=== PATIENT | male | born 1935 | race Caucasian/White ===

== ENCOUNTER 2016-08-16 07:19 | Day surgery (SDC) | payer MEDICARE, BC ==
[~2016-08-16 07:19] MED LIST: Lactated Ringers 1,000 ML IV SCH
[2016-08-16] MEDS ORDERED: fentaNYL 100 MCG/2 ML SDV ONE (09:14)
[2016-08-16] MEDS ORDERED: Propofol 200 MG/20 ML SDV ONE (09:14)
--- NOTE | 2016-08-16 11:52 | OR ---
PREOPERATIVE DIAGNOSIS: Family history of colon cancer, mother. History of polyps. POSTOPERATIVE DIAGNOSIS: Tiny cecal polyps x3 removed. PROCEDURE PROPOSED: Total flexible colonoscopy. PROCEDURE DONE: Total flexible colonoscopy with polypectomy x3. INDICATION: This is an 80-year-old gentleman who comes in for colonic surveillance due to a family history of mother with colon cancer. He is presently 80 years old. His last examination was 5 years ago. TECHNIQUE: The patient was brought to the endoscopy suite, placed in left lateral decubitus position. He was sedated with propofol per [employer]. The flexible video colonoscope was then passed transanally and under visualization advanced to the cecum. In the cecal area, he was found to have 3 tiny polyps, each removed with 1 bite of the [employer] cold biopsy forceps and submitted for pathologic examination. Otherwise, the remainder of the ascending, transverse, descending, sigmoid, and rectal colon was essentially unremarkable. There was no evidence of any other polyps, colitis, or any significant diverticular disease, and the scope was then withdrawn. He tolerated the procedure well. IMPRESSION: 1. Three tiny cecal polyps removed. 2. Family history of colon cancer, mother. PLAN: He will be sent a letter with the pathology report. Based on his age, I really do not feel he needs any future exams; however, if he is still very healthy at 85 and may live another 10 years, he may want to consider a repeat exam at age 85. SCM: 08/16/2016 10:25:09 MODL: 08/16/2016 11:43:59 /[id number]
[2016-08-16 14:02] VITALS: BP 119/74
--- NOTE | 2016-08-26 09:41 | LETTER ---
08/23/2016 Tish Lucas. RE: TISH LUCAS : 1935 Dear Tish: I am pleased to report to you that the polyps removed from your colon were all benign tubular adenomas. These are considered precancer-type polyps, but they are all very small and non worrisome. I feel that you likely are done requiring colonoscopies; however, one could entertain the suggestion of considering a repeat in 5 years if you are still in excellent health and feel that you could be living for another 10 years. If you have any further questions regarding this, feel free to call. Respectfully,
== END 2016-08-16 11:30 | disposition home or self-care (01) ==
LOC: VM.SDS 07:19
PROVIDERS: ATTEND Surgery
DX: Z12.11 Encounter for screening for malignant neoplasm of colon (principal); D12.0 Benign neoplasm of cecum; Z98.890 Other specified postprocedural states; Z79.899 Other long term (current) drug therapy; E78.00 Pure hypercholesterolemia, unspecified
CPT/HCPCS: 45380; J2704; J3010; J7120; 00810; 88305

== ENCOUNTER 2018-06-17 12:55 | Emergency (ER) | payer MEDICARE, BC ==
--- NOTE | 2018-06-17 13:24 | CT ---
[id number] CT/CT Head Stroke Protocol EXAM: NONCONTRAST HEAD CT INDICATION: Strokelike symptoms, code green. COMPARISON: None. DISCUSSION: There is mild generalized atrophy. There are mild chronic small vessel ischemic changes. A 14 x 6 mm area of cortical hyperdensity (image 24 series 2) is nonspecific and brain MRI with and without contrast is suggested for further characterization. Hyperdensity can be seen in the context of hemorrhage, but the morphology is atypical and can be seen with cortical necrosis, but there is no underlying encephalomalacia or edema. No mass effect or midline shift. No acute hemorrhage or extra-axial fluid collection. No acute territorial infarct is identified. There is near complete opacification of the left maxillary sinus and several ethmoid air cells with high attenuation inspissated secretions or fungal components of the left maxillary sinus. Trace fluid in the right maxillary sinus. IMPRESSION: 1. Nonspecific 14 x 6 mm right frontal cortical hyperdensity. Brain MRI with and without contrast is suggested for further characterization. 2. Sinusitis. Moncho Red MD 06/17/18 [id number] Thank you for allowing us to participate in the care of your patient.
[2018-06-17] MEDS: Ondansetron 4 MG/2 ML SDV IVPUSH ONE (13:30)
[2018-06-17 13:46] LABS: CHLORIDE,CL 88 mmol/L (98-107)
[2018-06-17 13:49] LABS: ANION GAP 11.9 mmol/L (10-20); SODIUM,NA 124 mmol/L (136-145)
--- NOTE | 2018-06-17 14:08 | EDM.PDOC ---
ED HPI GENERAL MEDICAL PROBLEM - General Chief Complaint: Neuro Symptoms/Deficits Stated Complaint: CODE GREEN Time Seen by Provider: 06/17/18 13:20 Source of Information: Reports: Patient, RN History Limitations: Reports: No Limitations - History of Present Illness INITIAL COMMENTS - FREE TEXT/NARRATIVE: Patient brought here from the clinic after complaints of having blurry vision, left-sided weakness, and speech difficulties. Reports that these symptoms started at 1240. When he arrived here all symptoms were resolved. Patient denies headache, chest pain, shortness of breath, abdominal pain, nausea or vomiting. Additionally he denies any blood in his urine or stool. Patient denies any recent or history of CVA or KS. Medications are limited to a daily aspirin, Lasix, and multivitamins. He was able to ambulate and transfer to the CT machine for his head CT without complaints of weakness. Onset: Today, Sudden Location: Reports: Upper Extremity, Left, Lower Extremity, Left - Related Data Allergies Allergy/AdvReac Type Severity Reaction Status Date / Time No Known Allergies Allergy Verified 06/17/18 13:26 Home Meds: Home Meds Aspirin [Halfprin] 81 mg PO BRK 08/08/16 [History] Fish Oil/DHA/EPA [Fish Oil 1,200 MG] 1,200 mg PO DAILY 08/08/16 [History] Ubidecarenone [Coenzyme Q-10] 30 mg PO DAILY 08/08/16 [History] Furosemide [Lasix] 20 mg PO DAILY 06/17/18 [History] Past Medical History HEENT History: Reports: Hard of Hearing, Impaired Vision Other HEENT History: VERTIGO Cardiovascular History: Reports: High Cholesterol Other Cardiovascular History: SINUS ARRHYTHMIA Other Respiratory History: CHRONIC COUGH Gastrointestinal History: Reports: Colon Polyp Other Gastrointestinal History: INGUINAL HERNIA Genitourinary History: Reports: Prostate Disorder, Urinary Incontinence Musculoskeletal History: Other Musculoskeletal History: DEGENERATIVE JOINT DISEASE Neurological History: Reports: Headaches, Chronic, Head Trauma 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 Other Hematologic History: ABNORMAL COAGULATION PROFILE Oncologic (Cancer) History: Reports: Prostate Other Oncologic History: SKIN CANCER Other Dermatologic History: HERPES ZOSTER - Past Surgical History Head Surgeries/Procedures: Reports: None Musculoskeletal Surgical History: Reports: None ED ROS GENERAL - Review of Systems Review Of Systems: See Below Constitutional: Reports: No Symptoms HEENT: Reports: Vision Change Respiratory: Reports: No Symptoms Cardiovascular: Reports: No Symptoms Endocrine: Reports: No Symptoms GI/Abdominal: Reports: No Symptoms : Reports: No Symptoms Musculoskeletal: Reports: No Symptoms Skin: Reports: No Symptoms Neurological: Reports: Numbness, Tingling, Weakness, Change in Speech (left sided) Psychiatric: Reports: No Symptoms Hematologic/Lymphatic: Reports: No Symptoms Immunologic: Reports: No Symptoms ED EXAM, NEURO - Physical Exam Exam: See Below Exam Limited By: No Limitations General Appearance: Alert, WD/WN, No Apparent Distress Eye Exam: Bilateral Eye: EOMI, Normal Inspection, PERRL Ears: Normal TMs Nose: Normal Inspection, Normal Mucosa, No Blood Throat/Mouth: Normal Inspection, Normal Lips, Normal Teeth, Normal Gums, Normal Oropharynx, Normal Voice, No Airway Compromise Head Exam: Atraumatic, Normocephalic Neck: Normal Inspection, Supple, Non-Tender, Full Range of Motion Respiratory/Chest: No Respiratory Distress, Lungs Clear, Normal Breath Sounds, No Accessory Muscle Use, Chest Non-Tender Cardiovascular: Normal Peripheral Pulses, Regular Rate, Rhythm, No Edema, No Gallop, No JVD, No Murmur, No Rub GI/Abdominal: Normal Bowel Sounds, Soft, Non-Tender, No Organomegaly, No Distention, No Abnormal Bruit, No Mass Neurological: Alert, Normal Mood/Affect, Normal Dorsiflexion, CN II-XII Intact, Normal Plantar Flexion, Normal Gait, Normal Reflexes, No Motor/Sensory Deficits , Oriented x 3 DTR: 2+: Patella (R), Patella (L) Back Exam: Normal Inspection, Full Range of Motion, NT Extremities: Normal Inspection, Normal Range of Motion, Non-Tender, No Pedal Edema, Normal Capillary Refill Psychiatric: Normal Affect, Normal Mood Skin Exam: Warm, Dry, Intact, Normal Color, No Rash Course - Orders/Labs/Meds Orders: Active Orders 24 hr Category Date Time Status EKG 12 Lead [EKG Documentation Completion] [RC] STAT Care 06/17/18 13:21 Ordered Labs: Laboratory Tests 06/17/18 06/17/18 06/17/18 Range/Units 13:05 13:08 13:08 WBC (4.0-10.0) x10^3/uL RBC (4.5-6.0) x10^6/uL Hgb (14.0-18.0) g/dL Hct (40.0-52.0) % MCV (78.0-93.0) fL MCH (26.0-32.0) pg MCHC (32.0-36.0) g/dL RDW Coeff of Kacy (10.0-15.0) % Plt Count (130-400) x10^3/uL Neut % (Auto) (50.0-80.0) % Lymph % (Auto) (25.0-50.0) % Terry % (Auto) (2.0-11.0) % Eos % (Auto) (0.0-4.0) % Baso % (Auto) (0.2-1.2) % PT 13.3 H (9.6-11.4) SEC INR 1.3 L (2.0-3.5) APTT 31.6 (21.3-33.5) SEC Sodium 124 L* (136-145) mmol/L Potassium 3.9 (3.5-5.1) mmol/L Chloride 88 L (98-107) mmol/L Carbon Dioxide 28 (21-32) mmol/L Anion Gap 11.9 (10-20) mmol/L BUN 11 (7-18) mg/dL Creatinine 1.0 (0.70-1.30) mg/dL Est Cr Clr Drug Dosing TNP Estimated GFR (MDRD) > 60 Glucose 89 (74-106) mg/dL POC Glucose 91 (74-106) mg/dL Calcium 9.4 (8.5-10.1) mg/dL POC Troponin I (0.00-0.08) ng/mL NT-Pro-B Natriuret Pep (<=450) pg/mL TSH, Ultra Sensitive (0.358-3.74) uIU/mL 06/17/18 06/17/18 06/17/18 Range/Units 13:08 13:08 13:13 WBC 6.2 (4.0-10.0) x10^3/uL RBC 4.44 L (4.5-6.0) x10^6/uL Hgb 12.8 L (14.0-18.0) g/dL Hct 36.0 L (40.0-52.0) % MCV 81.1 (78.0-93.0) fL MCH 28.8 (26.0-32.0) pg MCHC 35.6 (32.0-36.0) g/dL RDW Coeff of Kacy 14.7 (10.0-15.0) % Plt Count 187 (130-400) x10^3/uL Neut % (Auto) 51.2 (50.0-80.0) % Lymph % (Auto) 27.9 (25.0-50.0) % Terry % (Auto) 15.7 H (2.0-11.0) % Eos % (Auto) 4.7 H (0.0-4.0) % Baso % (Auto) 0.5 (0.2-1.2) % PT (9.6-11.4) SEC INR (2.0-3.5) APTT (21.3-33.5) SEC Sodium (136-145) mmol/L Potassium (3.5-5.1) mmol/L Chloride (98-107) mmol/L Carbon Dioxide (21-32) mmol/L Anion Gap (10-20) mmol/L BUN (7-18) mg/dL Creatinine (0.70-1.30) mg/dL Est Cr Clr Drug Dosing Estimated GFR (MDRD) Glucose (74-106) mg/dL POC Glucose (74-106) mg/dL Calcium (8.5-10.1) mg/dL POC Troponin I 0.00 (0.00-0.08) ng/mL NT-Pro-B Natriuret Pep 114 (<=450) pg/mL TSH, Ultra Sensitive 2.938 (0.358-3.74) uIU/mL Meds: Medications Discontinued Medications Generic Name Dose Route Start Last Admin Trade Name Freq PRN Reason Stop Dose Admin Ondansetron HCl 4 mg 06/17/18 13:24 06/17/18 13:30 Zofran IVPUSH 06/17/18 13:25 4 mg ONETIME ONE Administration - Radiology Interpretation Free Text/Narrative:: CT head shows 14 x 6 mm right frontal cortical hyperdensity. Suggests brain MRI for further characterization. Call to [place] [facility] for consultation. Advised that this may be a bleed and transfer to [place] initiated. Departure - Departure Time of Disposition: 14:59 Disposition: DC/Tfer to Acute Hospital 02 Condition: Good Clinical Impression: Brain bleed - Discharge Information *PRESCRIPTION DRUG MONITORING PROGRAM REVIEWED*: Not Applicable *COPY OF PRESCRIPTION DRUG MONITORING REPORT IN PATIENT IRVIN: Not Applicable Referrals: Pranav Hatch MD [Primary Care Provider] - Forms: ED Department Discharge, Interfacility Transfer [facility] ED Communication - ED Communication Date/Time Date: 06/17/18 Time Called: 14:30 - Discussed Case With (1) Discussed Case With (1): Other (Dr. Hanson did review images and believes the hyperdensity to be a brain bleed, recommend transfer) - Discussed Case With (2) Discussed Case With (2): Admitting Provider (Dr. Vazquez in ICU given report. Advised to go to the ER for additional testing before ICU admission.) - My Orders Last 24 Hours: My Active Orders 06/17/18 13:21 EKG 12 Lead [EKG Documentation Completion] [RC] STAT - Assessment/Plan Last 24 Hours: My Active Orders 06/17/18 13:21 EKG 12 Lead [EKG Documentation Completion] [RC] STAT
== END 2018-06-17 15:05 | disposition short-term general hospital (02) ==
LOC: VM.ED 12:55
DX: I61.9 Nontraumatic intracerebral hemorrhage, unspecified (principal); Z79.899 Other long term (current) drug therapy
CPT/HCPCS: 70450; 80048; 82962; 83880; 84443; 84484; 85025; 85610; 85730; 93005; 96361; 96374; 99285; J2405; 36415

== ENCOUNTER 2018-12-28 04:15 | Emergency (ER) | payer MEDICARE, BC ==
[2018-12-28] MEDS ORDERED: Sodium Chloride 0.9% 10 ML Syringe FLUSH PRN (04:33)
--- NOTE | 2018-12-28 04:39 | EDM.PDOC ---
ED HPI GENERAL MEDICAL PROBLEM - General Chief Complaint: Cardiovascular Problem Stated Complaint: Chest Pain Time Seen by Provider: 12/28/18 04:32 Source of Information: Reports: Patient - History of Present Illness INITIAL COMMENTS - FREE TEXT/NARRATIVE: Mickey is an 83 y/o male who comes into the ER with epigastric discomfort that will not allow him to sleep. He reports feeling some epigastric pain that started about 2200 when he was trying to go to bed. He laid down, but had to get up. He then felt a bit nauseated but could not vomit. He did pass some gas. He sat up awhile then shortly after midnight laid down again and tried to sleep. He woke up at 0230 and the midepigastric pain was still there and he then got ready to come to the ER. He reports that he ate a hot dog, sweet corn, and potato salad for supper about 6 pm. He did take baby ASA and a 325mg aspirin since all of this started. He denies any previous cardiac issues. - Related Data Allergies Allergy/AdvReac Type Severity Reaction Status Date / Time No Known Allergies Allergy Verified 06/17/18 13:26 Home Meds: Home Meds Aspirin [Halfprin] 81 mg PO DAILY 08/08/16 [History] Fish Oil/DHA/EPA [Fish Oil 1,200 MG] 1,200 mg PO DAILY 08/08/16 [History] Ubidecarenone [Coenzyme Q-10] 30 mg PO DAILY 08/08/16 [History] Furosemide [Lasix] 20 mg PO DAILY 06/17/18 [History] Past Medical History HEENT History: Reports: Hard of Hearing, Impaired Vision Other HEENT History: VERTIGO Cardiovascular History: Reports: High Cholesterol Other Cardiovascular History: SINUS ARRHYTHMIA Other Respiratory History: CHRONIC COUGH Gastrointestinal History: Reports: Colon Polyp Other Gastrointestinal History: INGUINAL HERNIA Genitourinary History: Reports: Prostate Disorder, Urinary Incontinence Musculoskeletal History: Other Musculoskeletal History: DEGENERATIVE JOINT DISEASE Neurological History: Reports: Headaches, Chronic, Head Trauma 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 Other Hematologic History: ABNORMAL COAGULATION PROFILE Oncologic (Cancer) History: Reports: Prostate Other Oncologic History: SKIN CANCER Other Dermatologic History: HERPES ZOSTER - Past Surgical History Head Surgeries/Procedures: Reports: None Musculoskeletal Surgical History: Reports: None ED ROS GENERAL - Review of Systems Review Of Systems: See Below Constitutional: Reports: No Symptoms HEENT: Reports: No Symptoms Respiratory: Reports: No Symptoms Cardiovascular: Reports: Chest Pain Endocrine: Reports: No Symptoms GI/Abdominal: Reports: Flatus, Nausea (slight). Denies: Vomiting : Reports: No Symptoms Musculoskeletal: Reports: No Symptoms Skin: Reports: No Symptoms Neurological: Reports: No Symptoms Psychiatric: Reports: No Symptoms Hematologic/Lymphatic: Reports: No Symptoms Immunologic: Reports: No Symptoms ED EXAM, GENERAL - Physical Exam Exam: See Below Exam Limited By: No Limitations General Appearance: Alert, WD/WN, No Apparent Distress, Other (Elderly male) Ears: Normal External Exam Nose: Normal Inspection Throat/Mouth: Normal Inspection, Normal Lips Head: Atraumatic, Normocephalic Neck: Normal Inspection Respiratory/Chest: No Respiratory Distress, Lungs Clear, Normal Breath Sounds, No Accessory Muscle Use, Chest Non-Tender Cardiovascular: Normal Peripheral Pulses, Regular Rate, Rhythm, No Edema, No JVD , No Murmur GI/Abdominal: Soft, Non-Tender, No Organomegaly, No Distention, No Mass, Abnormal Bowel Sounds (hyperactive) (Male) Exam: Deferred Rectal (Males) Exam: Deferred Back Exam: Other (Deferred) Extremities: No Pedal Edema Neurological: Alert, Oriented, CN II-XII Intact, Normal Cognition, Normal Gait Psychiatric: Normal Affect, Normal Mood Skin Exam: Warm, Dry, Intact, Normal Color, No Rash Lymphatic: No Adenopathy EKG INTERPRETATION Time: 04:18 Rhythm: NSR Course - Vital Signs Text/Narrative:: 0420 The patient was seen by the EQUIPMENT LEAD. EKG was done. Labs and CXR were ordered. He rated his pain 0/10 at this time. GI cocktail was ordered. 0530 Lab results and CXR report were reviewed. Patient was sx free at this time. He had no other concerns. Discharge instructions were given and he was sent home in stable condition. - Orders/Labs/Meds Orders: Active Orders 24 hr Category Date Time Status Cardiac Monitoring [RC] . DIRECTED Care 12/28/18 04:34 Active Oxygen Therapy [RC] PRN Care 12/28/18 04:34 Active Pulse Oximetry [RC] CONTINUOUS Care 12/28/18 04:34 Active Chest 2V [CR] Stat Exams 12/28/18 04:35 Taken Sodium Chloride 0.9% [Saline Flush] Med 12/28/18 04:33 Active 10 ml FLUSH ASDIRECTED PRN Peripheral IV Insertion Adult [OM.PC] Stat Oth 12/28/18 04:33 Ordered Saline Lock Insert [OM.PC] Stat Ot 12/28/18 04:33 Ordered Resuscitation Status Routine Resus Stat 12/28/18 04:33 Ordered Medication Orders Sodium Chloride (Saline Flush) 10 ml FLUSH ASDIRECTED PRN PRN Reason: Keep Vein Open Labs: Laboratory Tests 12/28/18 12/28/18 12/28/18 Range/Units 04:43 04:43 04:43 WBC 7.0 (4.0-10.0) x10^3/uL RBC 4.89 (4.5-6.0) x10^6/uL Hgb 15.1 D (14.0-18.0) g/dL Hct 43.6 (40.0-52.0) % MCV 89.2 D (78.0-93.0) fL MCH 30.9 (26.0-32.0) pg MCHC 34.6 (32.0-36.0) g/dL RDW Coeff of Kacy 13.6 (10.0-15.0) % Plt Count 176 (130-400) x10^3/uL Neut % (Auto) 63.5 (50.0-80.0) % Lymph % (Auto) 24.2 L (25.0-50.0) % [place] % (Auto) 8.3 (2.0-11.0) % Eos % (Auto) 3.7 (0.0-4.0) % Baso % (Auto) 0.3 (0.2-1.2) % PT 11.8 (10.0-12.8) SEC INR 1.0 L (2.0-3.5) Sodium 141 D (136-145) mmol/L Potassium 4.3 (3.5-5.1) mmol/L Chloride 104 D (98-107) mmol/L Carbon Dioxide 29 (21-32) mmol/L Anion Gap 12.3 (10-20) mmol/L BUN 19 H (7-18) mg/dL Creatinine 1.0 (0.70-1.30) mg/dL Est Cr Clr Drug Dosing TNP Estimated GFR (MDRD) > 60 Glucose 88 (74-106) mg/dL Calcium 9.3 (8.5-10.1) mg/dL Corrected Calcium 9.94 (8.5-10.1) mg/dL Total Bilirubin 0.4 (0.2-1.0) mg/dL AST 15 (15-37) U/L ALT 22 (16-63) U/L Alkaline Phosphatase 75 (46-116) U/L Creatine Kinase 83 (39-308) U/L POC Troponin I (0.00-0.08) ng/mL Total Protein 6.6 (6.4-8.2) g/dL Albumin 3.2 L (3.4-5.0) g/dL Globulin 3.4 Albumin/Globulin Ratio 0.94 12/28/18 Range/Units 04:50 WBC (4.0-10.0) x10^3/uL RBC (4.5-6.0) x10^6/uL Hgb (14.0-18.0) g/dL Hct (40.0-52.0) % MCV (78.0-93.0) fL MCH (26.0-32.0) pg MCHC (32.0-36.0) g/dL RDW Coeff of Kacy (10.0-15.0) % Plt Count (130-400) x10^3/uL Neut % (Auto) (50.0-80.0) % Lymph % (Auto) (25.0-50.0) % [place] % (Auto) (2.0-11.0) % Eos % (Auto) (0.0-4.0) % Baso % (Auto) (0.2-1.2) % PT (10.0-12.8) SEC INR (2.0-3.5) Sodium (136-145) mmol/L Potassium (3.5-5.1) mmol/L Chloride (98-107) mmol/L Carbon Dioxide (21-32) mmol/L Anion Gap (10-20) mmol/L BUN (7-18) mg/dL Creatinine (0.70-1.30) mg/dL Est Cr Clr Drug Dosing Estimated GFR (MDRD) Glucose (74-106) mg/dL Calcium (8.5-10.1) mg/dL Corrected Calcium (8.5-10.1) mg/dL Total Bilirubin (0.2-1.0) mg/dL AST (15-37) U/L ALT (16-63) U/L Alkaline Phosphatase (46-116) U/L Creatine Kinase (39-308) U/L POC Troponin I 0.00 (0.00-0.08) ng/mL Total Protein (6.4-8.2) g/dL Albumin (3.4-5.0) g/dL Globulin Albumin/Globulin Ratio Meds: Medications Generic Name Dose Route Start Last Admin Trade Name Freq PRN Reason Stop Dose Admin Sodium Chloride 10 ml 12/28/18 04:33 Saline Flush FLUSH ASDIRECTED PRN Keep Vein Open Discontinued Medications Generic Name Dose Route Start Last Admin Trade Name Freq PRN Reason Stop Dose Admin Al Hydroxide/Mg Hydroxide 30 ml 12/28/18 04:32 12/28/18 04:48 Gi Cocktail PO 12/28/18 04:33 30 ml ONETIME ONE Administration - Radiology Interpretation Free Text/Narrative:: CXR=no acute findings, chronic bronchitis pattern noted (final report reviewed) Departure - Departure Time of Disposition: 05:34 Disposition: Home, Self-Care 01 Condition: Good Clinical Impression: Midepigastric pain, Esophagitis Instructions: Esophagitis Referrals: Pranav Hatch MD [Primary Care Provider] - Forms: ED Department Discharge, ED Summary Discharge Additional Instructions: 1)Rest 2)Avoid foods that may trigger symptoms 3)Return to the ER if any further concerns or follow up with your PCP - My Orders Last 24 Hours: My Active Orders 12/28/18 04:33 Sodium Chloride 0.9% [Saline Flush] 10 ml FLUSH ASDIRECTED PRN Peripheral IV Insertion Adult [OM.PC] Stat Saline Lock Insert [OM.PC] Stat Resuscitation Status Routine 12/28/18 04:34 Cardiac Monitoring [RC] . DIRECTED Oxygen Therapy [RC] PRN Pulse Oximetry [RC] CONTINUOUS 12/28/18 04:35 Chest 2V [CR] Stat - Assessment/Plan Last 24 Hours: My Active Orders 12/28/18 04:33 Sodium Chloride 0.9% [Saline Flush] 10 ml FLUSH ASDIRECTED PRN Peripheral IV Insertion Adult [OM.PC] Stat Saline Lock Insert [OM.PC] Stat Resuscitation Status Routine 12/28/18 04:34 Cardiac Monitoring [RC] . DIRECTED Oxygen Therapy [RC] PRN Pulse Oximetry [RC] CONTINUOUS 12/28/18 04:35 Chest 2V [CR] Stat
[2018-12-28] MEDS: GI Cocktail Oral Solution 30 ML PO ONE (04:48)
[2018-12-28 05:23] LABS: ANION GAP 12.3 mmol/L (10-20); CHLORIDE,CL 104 mmol/L (98-107); SODIUM,NA 141 mmol/L (136-145)
--- NOTE | 2018-12-28 08:06 | CR ---
[id number] RAD/RAD Chest PA And Lateral EXAM: RAD Chest PA And Lateral INDICATION: CHEST PAIN COMPARISON: None. DISCUSSION: Cardiomediastinal silhouette is normal in size and contour. Bilateral symmetric lung hyperinflation, consistent with COPD. No infiltrate, effusion, pneumothorax, or edema. Calcified granuloma in the left upper lobe. IMPRESSION: No acute findings. Trveor Garsia MD 12/28/18 0804 Thank you for allowing us to participate in the care of your patient.
== END 2018-12-28 05:45 | disposition home or self-care (01) ==
LOC: VM.ED 04:15
DX: K20.9 Esophagitis, unspecified (principal); E78.00 Pure hypercholesterolemia, unspecified; Z79.82 Long term (current) use of aspirin; Z79.899 Other long term (current) drug therapy; Z85.828 Personal history of other malignant neoplasm of skin; Z86.010 Personal history of colon polyps
CPT/HCPCS: 71046; 80053; 82550; 84484; 85025; 85610; 93010; 99284-GF; 99285-25; A9270-GY

== ENCOUNTER 2020-02-08 15:18 | Emergency (ER) | payer MEDICARE, BC ==
[2020-02-08 15:31] VITALS: BP 132/85; PULSE 102
--- NOTE | 2020-02-08 16:20 | EDM.PDOC ---
ED HPI GENERAL MEDICAL PROBLEM - General Chief Complaint: General Time Seen by Provider: 02/08/20 15:44 Source of Information: Reports: Patient - History of Present Illness INITIAL COMMENTS - FREE TEXT/NARRATIVE: Mickey is an 84 y/o male who comes to the ER after being sent here by the [facility] nurse. He went to the [facility] COVID testing clinic. On Friday and Friday he reports feeling like he had a fever with sort throat, body aches, and a runny nose. He also a hacky cough and he has a hard time coughing up phlegm and feels like he is swallowing it. He reports he has been staying home and avoiding people, but his grand kids have been around. When he arrived at the [facility] his oxygen sat was 90% and so he was advised to come to the ER for evaluation. He has not taken any OTC meds. - Related Data Allergies Allergy/AdvReac Type Severity Reaction Status Date / Time No Known Allergies Allergy Verified 02/08/20 15:34 Home Meds: Home Meds Aspirin [Halfprin] 81 mg PO DAILY 08/08/16 [History] Fish Oil/DHA/EPA [Fish Oil 1,200 MG] 1,200 mg PO DAILY 08/08/16 [History] Ubidecarenone [Coenzyme Q-10] 30 mg PO DAILY 08/08/16 [History] Denosumab [Prolia] 60 mg SQ Q6M 02/08/20 [History] Fluticasone Propionate [Flonase] 16 gm IH BID 02/08/20 [History] Hydrocortisone [Cortef] 5 mg PO BID 02/08/20 [History] Multivitamin [Multivitamins] 1 each PO DAILY 02/08/20 [History] Past Medical History HEENT History: Reports: Hard of Hearing, Impaired Vision Other HEENT History: VERTIGO Cardiovascular History: Reports: High Cholesterol Other Cardiovascular History: SINUS ARRHYTHMIA Other Respiratory History: CHRONIC COUGH Gastrointestinal History: Reports: Colon Polyp Other Gastrointestinal History: INGUINAL HERNIA Genitourinary History: Reports: Prostate Disorder, Urinary Incontinence Musculoskeletal History: Other Musculoskeletal History: DEGENERATIVE JOINT DISEASE Neurological History: Reports: Headaches, Chronic, Head Trauma 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 Other Hematologic History: ABNORMAL COAGULATION PROFILE Oncologic (Cancer) History: Reports: Prostate Other Oncologic History: SKIN CANCER Other Dermatologic History: HERPES ZOSTER - Past Surgical History Head Surgeries/Procedures: Reports: None Musculoskeletal Surgical History: Reports: None Social & Family History - Tobacco Use Smoking Status *Q: Unknown Ever Smoked ED ROS GENERAL - Review of Systems Review Of Systems: See Below Constitutional: Reports: Fever, Chills, Weakness, Fatigue HEENT: Reports: Rhinitis, Throat Pain Respiratory: Reports: Cough Cardiovascular: Reports: No Symptoms Endocrine: Reports: No Symptoms GI/Abdominal: Reports: No Symptoms : Reports: No Symptoms Musculoskeletal: Reports: No Symptoms (Body Aches), Other Skin: Reports: No Symptoms Neurological: Reports: No Symptoms Psychiatric: Reports: No Symptoms Hematologic/Lymphatic: Reports: No Symptoms Immunologic: Reports: No Symptoms ED EXAM, GENERAL - Physical Exam Exam: See Below General Appearance: Alert, WD/WN, No Apparent Distress (Elderly male.) Eye Exam: Bilateral Eye: PERRL Ears: Normal External Exam, Normal Canal, Hearing Grossly Normal, Normal TMs Nose: Normal Inspection, Normal Mucosa Throat/Mouth: Normal Inspection, Normal Lips, Normal Voice, No Airway Compromise Head: Atraumatic, Normocephalic Neck: Normal Inspection, Supple Respiratory/Chest: Rhonchi (fine rhonchi noted in the posterior lower lungs.) Cardiovascular: Normal Peripheral Pulses, Regular Rate, Rhythm, No Murmur GI/Abdominal: Normal Bowel Sounds, Soft, Non-Tender (Male) Exam: Deferred Rectal (Males) Exam: Deferred Extremities: Normal Inspection, Normal Range of Motion, Normal Capillary Refill Neurological: Alert, Oriented, CN II-XII Intact, Normal Gait, No Motor/Sensory Deficits Psychiatric: Normal Affect, Normal Mood Skin Exam: Warm, Dry, Intact, Normal Color, No Rash Lymphatic: No Adenopathy Course - Vital Signs Text/Narrative:: 1544 The patient was seen by the [facility] [employer] [facility]. Rapid COVID test done here negative. Additional labs and CXR ordered due to age and lung sounds. Last Recorded V/S: Last Vital Signs Temp 36.6 C 02/08/20 15:20 Pulse 102 H 02/08/20 15:20 Resp 18 02/08/20 15:20 BP 132/85 02/08/20 15:20 Pulse Ox 94 L 02/08/20 15:20 - Orders/Labs/Meds Orders: Active Orders 24 hr Category Date Time Status BASIC METABOLIC PANEL,BMP [CHEM] Stat Lab 02/08/20 15:56 Ordered LACTIC ACID [CHEM] Stat Lab 02/08/20 15:56 Ordered Labs: Laboratory Tests 02/08/20 02/08/20 Range/Units 15:28 16:11 WBC 11.0 H (4.0-10.0) x10^3/uL RBC 5.01 (4.5-6.0) x10^6/uL Hgb 15.9 (14.0-18.0) g/dL Hct 44.9 (40.0-52.0) % MCV 89.6 (78.0-93.0) fL MCH 31.7 (26.0-32.0) pg MCHC 35.4 (32.0-36.0) g/dL RDW Coeff of Kacy 12.6 (10.0-15.0) % Plt Count 189 (130-400) x10^3/uL Neut % (Auto) 71.6 (50.0-80.0) % Lymph % (Auto) 14.0 L (25.0-50.0) % Piute % (Auto) 11.4 H (2.0-11.0) % Eos % (Auto) 2.6 (0.0-4.0) % Baso % (Auto) 0.4 (0.2-1.2) % SARS CoV-2 RNA Rapid AMAURI Negative (NEGATIVE) Departure - Departure Time of Disposition: 16:33 Disposition: DC/Tfer to Hospice - Home 50 Condition: Good Clinical Impression: URI (upper respiratory infection) Qualifiers: URI type: unspecified viral URI Qualified Code(s): J06.9 - Acute upper respiratory infection, unspecified - Discharge Information *PRESCRIPTION DRUG MONITORING PROGRAM REVIEWED*: Not Applicable *COPY OF PRESCRIPTION DRUG MONITORING REPORT IN PATIENT IRVIN: Not Applicable Instructions: Upper Respiratory Infection, Adult, [id number] Forms: ED Department Discharge Additional Instructions: -COVID test was negative today in the ER -Use over the counter meds as cooper find them helpful. -Honey 1-2 tsp every 2 hours can be effective for cough. -Stay well hydrated -Rest -Continue to stay away from crowds -If your symptoms are not improving or you have any other concerns, please call the clinic or return to the ER. Sepsis Event Note (ED) - Evaluation Sepsis Screening Result: No Definite Risk - Focused Exam Vital Signs: Vital Signs Temp Pulse Resp BP Pulse Ox 02/08/20 15:20 36.6 C 102 H 18 132/85 94 L - My Orders Last 24 Hours: My Active Orders 02/08/20 15:56 BASIC METABOLIC PANEL,BMP [CHEM] Stat LACTIC ACID [CHEM] Stat - Assessment/Plan Last 24 Hours: My Active Orders 02/08/20 15:56 BASIC METABOLIC PANEL,BMP [CHEM] Stat LACTIC ACID [CHEM] Stat Assessment:: 1)URI 2)Chronic Lung Disease 3)COVID neg Plan: -Discharge to home with symptomatic care
--- NOTE | 2020-02-08 16:30 | CR ---
[id number] RAD/RAD Chest PA And Lateral EXAM: RAD Chest PA And Lateral CLINICAL DATA: RALES UPPER RESPIRATORY INFECTION COMPARISON: CORRELATION IS MADE WITH DECEMBER 28, 2018 FINDINGS: Lungs are clear but hyperaerated The cardiac silhouette is prominent but stable IMPRESSION: AIRWAY DISEASE NO PNEUMONIA Abraham Pelayo MD 02/08/20 0642 Thank you for allowing us to participate in the care of your patient.
[2020-02-08 16:34] LABS: CHLORIDE,CL 97 mmol/L (98-107); SODIUM,NA 134 mmol/L (136-145)
[2020-02-08 16:37] LABS: ANION GAP 10.4 mmol/L (10-20)
== END 2020-02-08 16:40 | disposition home or self-care (01) ==
LOC: VM.ED 15:18
DX: J06.9 Acute upper respiratory infection, unspecified (principal); Z20.828 Contact with and (suspected) exposure to other viral communicable diseases; Z79.82 Long term (current) use of aspirin; Z79.899 Other long term (current) drug therapy
CPT/HCPCS: 36415; 71046; 80048; 83605; 85025; 99283; 99284-25; U0002